=== PATIENT | female | born 1990 | race African-American/Black ===

== ENCOUNTER 2016-07-19 20:23 | Emergency (ER) | payer MEDICAID ==
[~2016-07-19] VITALS: Ht 180.3 cm; Wt 160.0 kg
[2016-07-19] MEDS ORDERED: ONDANSETRON HCL 4MG/2ML VIAL IM ONE (21:30)
[2016-07-19] MEDS ORDERED: KETOROLAC 30MG/ML VIAL IV ONE (21:30)
[2016-07-19 22:03] LABS: BASOPHILS % 0.7 % (0.0-2.0); EOSINOPHILS % 0.4 % (0.0-5.0); HEMOGLOBIN. 11.5 g/dL (12.0-16.0); LYMPHOCYTES % 20.9 % (20.0-50.0); MEAN CORPUSCULAR HEMOGLOBIN 26.5 pg (28.0-32.0); MEAN CORPUSCULAR VOLUME 78.3 fL (81.0-99.0); MEAN PLATELET VOLUME 8.5 fl (7.4-10.4); MONOCYTES % 5.2 % (2.0-8.0); NEUTROPHILS % 72.8 % (40.0-76.0); PLATELET 237 x1000/uL (130-400); RED BLOOD CELL COUNT 4.34 mill/uL (4.2-5.4); RED CELL DISTRIBUTION WIDTH 14.7 % (11.6-14.6)
[2016-07-19 22:05] LABS: CHLORIDE 107 mEq/L (98-107)
[2016-07-19 22:14] LABS: CARBON DIOXIDE 27 mEq/L (21-32)
[2016-07-20 02:00] VITALS: BP 132/74
== END 2016-07-20 02:02 | disposition home or self-care (01) ==
LOC: ER 22:13
DX: R51 Headache (principal); B34.9 Viral infection, unspecified; F12.10 Cannabis abuse, uncomplicated
CPT/HCPCS: 36415; 70450; 80053; 85025; 96372; 96374; 99285; J1885; J2405; Z7610